=== PATIENT | female | born 1935 | race Caucasian/White ===

== ENCOUNTER 2016-08-25 05:39 | Inpatient (IN) | payer MEDICARE, BC ==
[~2016-08-25] VITALS: Ht 157.5 cm; Wt 74.9 kg
--- NOTE | ~2016-08-25 | CON ---
PATIENT'S NAME: CONY KRISHNAMURTHY I [facility] AGE: 80 Y [address] ROOM: G6330 [place], [place] [address] [facility] ADMIT DATE: 08/25/2016 Consultation DISCHARGE DATE: FAMILY PHYSICIAN: Gerardo Vernon MD ATTENDING PHYSICIAN: Adam Guillermo DATE OF CONSULTATION: 08/25/2016 REFERRING PHYSICIAN: HANS ARTEAGA MD REASON FOR CONSULTATION: Evaluation and management of a patient with lung mass. CHIEF COMPLAINT: Chest pain. HISTORY OF PRESENTING ILLNESS: This is an 80-year-old female with longstanding smoking history, coronary artery disease, peripheral vascular disease, and other comorbidities who was [facility] today for higher level of care. Apparently, the patient has had a substernal chest pain that started yesterday. Last night, she woke up with a severe chest pain and was taken to the [facility] emergency department. There was concern for jjr-[id number] myocardial infarction, and for this reason, she was transferred to our hospital where she underwent a catheterization earlier today. At the time of arrival to our hospital, she was also on supplemental oxygen at 2 liters/minute. She is usually not on supplemental oxygen during day. Nocturnal oxygen was prescribed in the past, but she did not wear it. The catheterization showed in-stent thrombus in the ramus artery. Eventually, a new drug-eluting stent was placed and the patient was started on Plavix as well. At home she has been on Pradaxa for at least 5 years although she is not sure of the reason why she was placed on Pradaxa. She was also on Plavix in the past, but that was stopped because she had a pain pump implant few years ago. While in the [facility] emergency department, chest x-ray showed possible right middle lobe mass and calcified granulomas. I was able to retrieve old chest x-rays from our system. In 2007, she had no evidence of a lung mass although she had evidence of calcified granulomas. She does not remember if she had a chest x-ray in between. Because of this finding on the chest x-ray, I was asked by Dr. Guillermo to come and evaluate the patient. At the time of my evaluation, the patient was still complaining of chest pain, although this had improved. She was on nitroglycerin drip and she had received aspirin, Plavix, and morphine as well. PAST MEDICAL HISTORY: 1. Coronary artery disease, status post multiple PCIs. She has had 7 stents PATIENT'S NAME: [facility] AGE: 80 Y [address] ROOM: [place] [address] LOCATION: [facility] ADMIT DATE: 08/25/2016 Consultation DISCHARGE DATE: FAMILY PHYSICIAN: Gerardo Vernon MD ATTENDING PHYSICIAN: Adam Guillermo placed. 2. Hypercholesterolemia. 3. Hypertension. 4. Peripheral vascular disease. 5. Osteoarthritis. 6. Gastroesophageal reflux disease. 7. Nocturnal hypoxia for COPD most likely although the patient does not remember having pulmonary function tests done in the past. PAST SURGICAL HISTORY: 1. Hysterectomy. 2. Cervical fusion. 3. Lumbar fusion. 4. Appendectomy. 5. Tonsillectomy. 6. Thyroidectomy. 7. Three C-sections. 8. Left and right ribs removal. 9. Cataract surgery. FAMILY HISTORY: Her mother passed from stomach cancer and her father passed from lung cancer. A sibling has heart problems. ALLERGIES: SHE DEVELOPS ITCHING TO CEFTRIAXONE. MEDICATIONS: Medications at home were reviewed. Notably, she was on: 1. Pradaxa. 2. Estradiol. 3. Hydrochlorothiazide. 4. Lisinopril. 5. Metformin. 6. Metoprolol. 7. Morphine pump. 8. Nitroglycerin. 9. Percocet. 10. Simvastatin. 11. Carbidopa/levodopa. CURRENT MEDICATIONS: Reviewed as per chart. As mentioned above, she was also started on: 1. Plavix. 2. Aspirin. PATIENT'S NAME: [facility] AGE: 80 Y [address] ROOM: [place] [address] LOCATION: [facility] ADMIT DATE: 08/25/2016 Consultation DISCHARGE DATE: FAMILY PHYSICIAN: Gerardo Vernon MD ATTENDING PHYSICIAN: Aadm Guillermo REVIEW OF SYSTEMS: Pertinent positives and negatives as per history of present illness. She denies chronic cough, sputum production, wheezing. She has chronic back pain and stiffness of the joints. She denies anxiety, depression, but has heartburn. Otherwise, a 12-point review of systems was performed and was negative. PHYSICAL EXAMINATION: VITAL SIGNS: Temperature is 97.4, heart rate of 69, respiratory rate was 18, blood pressure was 127/63, and oxygen saturation 95% on 2 liters. Weight 73.6 kg, height 5 feet and 3 inches with a BMI of 29.7. GENERAL: She is a pleasant, elderly female, sitting up in bed, in no acute distress, speaking in full sentences. HEENT: Atraumatic head. Changes consistent with cataract surgery noted in both eyes. Anicteric sclerae. Moist oral mucosa. No pharyngeal erythema. NECK: Supple. No JVD. No LAD. Trachea midline. She had a scar consistent with previous thyroidectomy without any palpable masses in the neck. CARDIOVASCULAR: Regular rhythm and rate. No murmur, rubs, or gallops. RESPIRATORY: Clear to auscultation bilaterally. ABDOMEN: Soft, nontender, and nondistended. Bowel sounds are present. EXTREMITIES: No lower extremity edema. No cyanosis and no clubbing. NEUROLOGIC: Alert and oriented x4. Grossly nonfocal. LABORATORY DATA: Troponin I was less than 0.04, CK-MB was 0.7, CPK was 20. Complete metabolic profile showed a sodium of 138, potassium of 5, chloride of 107, total serum bicarbonate of 19, BUN of 30, creatinine of 1.2, calcium of 9, glucose of 149. LFTs were within normal limits. CBC was within normal limits. I also personally reviewed the medical records from the outside hospital and I personally reviewed the chest x-ray that showed a large right lung mass with multiple calcified granulomas in both lungs. ASSESSMENT: 1. Right lung mass. This is as seen on the chest x-ray. There is a high concern for malignancy because of the patient's prolonged history of smoking. This mass will need a better characterization. 2. Coronary artery disease. She is status post new stent placement with initiation of Plavix and aspirin. She is currently still on nitroglycerin drip with improved chest pain. 3. Long-term anticoagulation. She is on Pradaxa, but for unclear reason. 4. Tobacco abuse. This is ongoing. 5. Acute respiratory failure. She is on supplemental oxygen at 2 liters/minute. This can be in context of acute coronary syndrome, but she might have also underlying chronic obstructive pulmonary disease. PATIENT'S NAME: CONY KRISHNAMURTHY I [facility] AGE: 80 Y [address] [place] [facility] [place] [address] LOCATION: [facility] ADMIT DATE: 08/25/2016 Consultation DISCHARGE DATE: FAMILY PHYSICIAN: Gerardo Vernon MD ATTENDING PHYSICIAN: Adam Guillermo However, overall she is not very symptomatic on a daily basis. PLAN: 1. I will order a noncontrast chest CT, and depending on the chest CT results, I will make a decision with the patient and the other physicians regarding the type and the timing of biopsy. Ideally, the patient should be off Pradaxa for at least 48 hours before a biopsy and off Plavix for 5 to 7 days. If she has the tumor in a large airway and the tumor can be visualized, she can be off Plavix for a less amount of time in case I have to proceed with bronchoscopy with endobronchial biopsies. 2. I strongly advised the patient to stop smoking. I will personally discuss with the event specialist Dr. Guillermo when to stop anticoagulation and antiplatelet therapy for possible biopsies. If the patient will need a transthoracic CT-guided needle biopsy then I will discuss also with the radiologist. The current assessment and plan was discussed with the patient and the patient's family. All of their questions were answered to the best of my abilities. I would like to thank you, Dr. Guillermo, for giving me the opportunity to participate in this patient's care. MD PAWAN GUAJARDO/sherwin /[id number] d: 08/25/[id number] t: 08/26/161611, CONSULTATION REPORT
--- NOTE | ~2016-08-25 | ECHO ---
Transthoracic Echocardiography Report (TTE) Demographics Patient Name CONY KRISHNAMURTHY I Date of Study 08/26/2016 Patient Number [id number] Visit Number [id number] Date of 1935 Room Number G6330 Gender Female Number Age 80 year(s) Referring Mima Ervin Oiling Machine Operator Freya Villagomez, Physician A RT,RVT,RDCS Physician Interpreting Mima Ervin Mill Beam Fitter Physician A MD Supervising Ordering Mima Ervin MD/MLP Physician A Nurse Stress Home Connect Lpn Conclusions Contractility Score Summary Normal Left Ventricular contractility was noted. Summary The estimated left ventricular ejection fraction is 60%. Mild concentric left ventricular hypertrophy. There is mild aortic stenosis by the Continuity Equation. The peak velocity is 1.5 m/s, the mean gradient is 4 mmHg, and the valve area based on the continuity equation is 1.6 cm2, stroke volume index is 47 ml/m2. Trivial tricuspid regurgitation by color Doppler. Procedure Type of Study TTE procedure:2D Echocardiogram, M-Mode, Doppler , Color Doppler. Procedure Date Date: 08/26/2016 Start: 01:11 PM Study Location: Inpatient Portable Technical Quality: Adequate visualization Indications:Chest pain. Appropriate Use Criteria: 9 Patient Status: Routine HR: 67 bpm BP: 126/60 mmHg Allergies - No known allergies. M-Mode/2D Measurements LV Diastolic Dimension: 2.9 cm LV Systolic Dimension: 1.74 cm LV Septum Diastolic: 1.21 cm LV PW Diastolic: 1.14 cm AO Root Dimension: 3 cm Cardiac Output: 3.16 l/min AV Cusp Separation: 1.3 cm RV Diastolic Dimension: 3.4 cm EF Estimated: 70 % LVOT: 1.7 cm MV EPSS: 0.3 cm LVOT VTI: 20.8 cm LV Stroke volume: 47.19 ml Doppler Measurements AV Peak Velocity: 1.46 m/s MV Peak E-Wave: 0.98 m/s AV Peak Gradient: 8.53 mmHg MV Peak A-Wave: 1.11 m/s AV Mean Gradient: 4 mmHg MV E/A Ratio: 0.88 LVOT Peak Velocity: 1.04 m/s MV P1/2t: 75 msec TR Gradient:3.91 mmHg PV Peak Velocity: 0.8 m/s Estimated RAP:10 mmHg PV Peak Gradient: 2.53 mmHg Estimated RVSP: 14 mmHg Estimated PASP: 13.91 mmHg E' Septal Velocity: 0.08 m/s A' Septal Velocity: 0.1 m/s MV E/E' Ratio: 12.9 Findings Left Ventricle Mild concentric left ventricular hypertrophy. Right Ventricle Normal right ventricle structure and function. Left Atrium Normal left atrial size. Right Atrium Normal right atrial size. Mitral Valve Normal mitral valve structure and function. Aortic Valve There is mild aortic stenosis by the Continuity Equation. The peak velocity is 1.5 m/s, the mean gradient is 4 mmHg, and the valve area based on the continuity equation is 1.6 cm2, stroke volume index is 47 ml/m2. Tricuspid Valve Trivial tricuspid regurgitation by color Doppler. Pericardial Effusion No evidence of pericardial effusion. Miscellaneous Visualized portions of the aortic root and ascending aorta appear normal in size. Pleural Effusion No evidence of pleural effusion. Contractility Score LV regional wall motion:(0-Non visualized 1-Normal 2-Hypokinesis 3-Akinesis 4-Dyskinesis 5-Aneurysm) Signature dtt: Adam Guillermo dtd: 08/26/16 1311 Physician Self Edit
--- NOTE | ~2016-08-25 | CATH ---
Cardiac Diagnostic + PCI Report Demographics Patient Name YESSY DONNELLY I Gender Female Date of 1935 Age 80 year(s) Patient Number [id number] Date of Study 08/25/2016 Visit Number [id number] Room Number G6330 [place] [id number] Ht 157.48 cm Wt 73.6 kg Referring Efstratiou Primary Physician Physician Aziza Swartz MD Performing Efstratiou Secondary Physician Physician Aziza Swartz MD Diagnostic Efstratiou Assisting Physician Physician Aziza Swartz MD Interventional Efstratiou Physician Bag Making Machine Tender Physician Aziza Swartz MD Findings and Conclusions Diagnostic Findings and Conclusion Severe in stent restenosis in Ramus. Moderate restenosis in RCA 30% LAD stenosis Diagnostic Recommendations PCI Ramus Interventional Findings and Conclusion Successful YADY to Ramus after extensive vessel preparation. Interventional Recommendations Aspirin, Plavix, pradaxa for 1 month. Then stop aspirin. Continue plavix and pradaxa for 11 months. Procedure Description The patient was brought to the diagnostic cardiac catheterization-EP laboratory in the fasting, non-sedated state. Informed consent was obtained in the written and verbal form after the risks and benefits were explained. The patient had no further questions and agreed to proceed. The planned puncture-incision site(s) were shaved and prepped with ChloraPrep and draped in the usual sterile manner. Conscious sedation, supplemental oxygen, and pain control medications were delivered by a registered nurse under physician guidance. Surface ECG rhythm, blood pressure measurement, and pulse oximetry were monitored throughout the procedure. Arterial access. The access site was infiltrated with lidocaine. The vessel was entered with the Seldinger technique. A sheath was advanced into the vessel and used for catheter placement. Selective left coronary angiography. A catheter was advanced into the left coronary vessel ostium under Fluoroscopic guidance. Contrast was injected by hand. Images were obtained in multiple projections. Selective right coronary angiography. A catheter was advanced into the right coronary vessel ostium under fluoroscopic guidance. Contrast was injected by hand. Images were obtained in multiple projections. Left heart catheterization. A catheter was advanced across the aortic valve to the left ventricle under fluoroscopic guidance. Resting hemodynamics were obtained. Angioplasty and Stent Placement: A guiding catheter was used to intubate the vessel. A 0.14 wire was then used to cross the lesion. A balloon catheter was placed across the lesion and inflated. The balloon catheter was then removed. A Drug Eluting Stent was placed and inflated. Post placement angiograms were performed. Arterial artery hemostasis was achieved. The patient was transferred to a regular nursing floor via cart accompanied by a nurse. The patient left the laboratory in stable condition. Diagnostic Cath Status: Urgent Interventional Cath Status: Urgent Procedure Procedure Type Diagnostic procedure:Angiography:, Coronary Angios w/[facility] PCI procedure:Drug Eluting Coronary Stent:, Ramus, PTCA:, Ramus Indications: Chest pain. The procedure was explained in detail to the patient. Risks, complications and alternative treatments were reviewed. Written consent was obtained. Medications Reviewed with Patient prior to Procedure. Angiographic Findings Dominance: Right Cardiac Arteries and Lesion Findings LMCA: Normal (0% Stenosis).Patent LAD: Diagonal small Lesion on Mid LAD: 30% stenosis . LCx: Normal (0% Stenosis).Circumflex and OM are patentThere is a previous stent on [address]st [place]. RCA: There is a previous stent on Prox RCA. Lesion on Prox RCA: 50% stenosis . The lesion was previously treated with the following techniques: drug eluting stent. This is in-stentrestenosis. Ramus: There is a previous stent on Ramus Proximal subsection. Lesion on Ramus: Proximal subsection.99% stenosis 28 mm length reduced to 0%. Pre procedure ALONSO II flow was noted. Post Procedure ALONSO III flow was present. The guidewire cross was successful.The lesion was diagnosed as a moderate risk lesion.Culprit lesion. Devices used - Whisper Wire .014 x 190. Number of passes: 1. - Emerge Balloon 1.5 x 12. 3 inflation(s) to a max pressure of: 15 jammie. - Emerge Balloon 2.0 x 12. 3 inflation(s) to a max pressure of: 16 jammie. - NC Emerge Balloon 2.0 x 15. 2 inflation(s) to a max pressure of: 24 jammie. - NC Emerge Balloon 2.25 x 12. 4 inflation(s) to a max pressure of: 24 jammie. - Promus Premier 2.25 x 28 Stent. 1 inflation(s) to a max pressure of: 14 jammie. - NC Emerge Balloon 2.5 x 15. 1 inflation(s) to a max pressure of: 20 jammie. Coronary Tree Procedure Data Procedure Date Date: 08/25/2016Start: 11:34 AMEnd: 01:02 PM Entry Locations - Retrograde Percutaneous access was performed through the Right Radial artery (Primary location). A 6 Fr sheath was inserted. Unsuccessful closure attempt was performed using: an R band. Hemostasis was successfully obtained using Mechanical Compression. Closure Comments: 13 cc of air in the R band. Procedure Medications Order and Administration + + + + + !Time !Medication !Dosage !Route ! + + + + + 08/25/2016 11:34 AM !Versed !1 mg !I.V. ! + + + + + 08/25/2016 11:39 AM !Radial Nitroglycerin !200 mcg !I.A. ! + + + + + 08/25/2016 11:40 AM !Radial Heparin (ACC_3) !3000 units !I.A. ! + + + + + 08/25/2016 11:40 AM !Radial Verapamil !3 mg !I.A. ! + + + + 08/25/2016 11:40 AM !Oxygen !2 l/min !NC ! + + + + 08/25/2016 11:40 AM !Fentanyl !50 mcg !I.V. ! + + + + 08/25/2016 12:00 PM !Heparin (ACC_3) !3000 units !I.V. ! + + + + 08/25/2016 12:12 PM !Fentanyl !25 mcg !I.V. ! + + + + + !08/25/2016 12:25 PM !Fentanyl !50 mcg !I.V. ! + + + + + 08/25/2016 12:30 PM !Nitroglycerin !300 mcg !I.C. ! + + + + + !08/25/2016 12:34 PM !Nitroglycerin !200 mcg !I.C. ! + + + + 08/25/2016 12:36 PM !Nitroglycerin !10 mcg/min !I.V. drip ! + + + + + 08/25/2016 12:41 PM !Nitroglycerin !20 mcg/min !I.V. drip ! + + + + + !08/25/2016 12:41 PM !Nitroglycerin !30 mcg/min !I.V. drip ! + + + + + 08/25/2016 12:43 PM !Nitroglycerin !50 mcg/min !I.V. drip ! + + + + + 08/25/2016 12:46 PM !Fentanyl !50 mcg !I.V. ! + + + + 08/25/2016 12:48 PM !Plavix (ACC_8) !600 mg !P.O. ! + + + + + 08/25/2016 12:53 PM !Heparin (ACC_3) ! !I.V. ! + + + + + Devices Used - A6 Fr. BS JR 4 Diag. Catheterwas used for:Right coronary angiography. - A6 Fr. BS JL 3.5 Diag. Catheterwas used for:Left coronary angiography. - A6 Fr. XBLAD 3.5 Guide Catheterwas used for:Ramus Intervention. - A6 Fr. Guidlinerwas used for:Ramus Intervention. Contrast Material - Isovue [id number] ml Fluoroscopy Time: Diagnostic: 20:06 minutes. Total: 20:06 minutes. Fluoroscopy Dose: Diagnostic: 1531 mGy. Total: 1531 mGy. Estimated Blood Loss: 40 ml. Additional [facility] PCI Information PCI Indication:PCI for high risk Non-STEMI or unstable angina. Medical History Allergies - No known allergies. Risk Factors The patient risk factors include:prior PCI;peripheral arterial disease, hypercholesterolemia, hypertension, family history of premature CAD, chronic lung disease, dyslipidemia, Current/Recent(w/in 1 year) tobacco use and prior ID . Admission Data Admission Date: 08/25/2016 Admission Time: 05:39 AM Insurance Payors: Medicare. Admission Medications + +------+------+ + + + + !Medication !Dosage!Times !Last !Last !Administered !Comments ! ! ! !Per !Delivery !Delivery ! ! ! ! ! !Day !Date !Time ! ! ! + +------+------+ + + + + !Statin (any)! ! ! ! !Yes ! ! + +------+------+ + + + + !VIPIN ! ! ! ! !Yes ! ! !Inhibitor ! ! ! ! ! ! ! !(any) ! ! ! ! ! ! ! + +------+------+ + + + + !Beta Chad! ! ! ! !Yes ! ! !(any) ! ! ! ! ! ! ! + +------+------+ + + + + Clinical Evaluation Leading to Procedure - The patient's CAD presentation was assessed as: Unstable angina. - The patient's anginal syndrome during the past two weeks was assessed as: Class IV according to the [place] Cardiovascular Society Classification System (CCS). Snapshots Hemodynamics Condition: Rest O2 Consumption: Estimated: 156.62Heart Rate: 69 bpm Pressures (mmHg) +-----+ + !Site !Pressure ! +-----+ + !LV !127/-14 ,2 ! +-----+ + !LV !132/-13 ,7 ! +-----+ + !AO !131/45 (81) ! +-----+ + !LV !129/-11 ,9 ! +-----+ + !AO !127/59 (86) ! +-----+ + !AO !129/59 (85) ! +-----+ + Valve Gradients and Areas + +---------+---------+---------+ +---------+ + !Valve !Peak !Mean !Area !Index !Flow !Source ! + +---------+---------+---------+ +---------+ + !Aortic !0 !0 ! ! ! ! ! + +---------+---------+---------+ +---------+ + !Aortic !0 !0 ! ! ! ! ! + +---------+---------+---------+ +---------+ + Shunts Oxygen Values O2 Capacity 174.08 O2 Consumption 156.62 Signatures dtt: Adam Guillermo dtd: 08/25/16 1134 Physician Self Edit
--- NOTE | ~2016-08-25 | HP ---
PATIENT'S NAME: CONY KRISHNAMURTHY I [facility] AGE: 80 Y [address] ROOM: [id number] [place], [place] [address] LOCATION: GPCU ADMIT DATE: 08/25/2016 History & Physical DISCHARGE DATE: FAMILY PHYSICIAN: Gerardo Vernon MD ATTENDING PHYSICIAN: Kyara Minaya DATE OF SERVICE: HISTORY OF PRESENT ILLNESS: This is an 80-year-old female who normally follows cardiology care with Dr. Ab Cadet. She presented to [facility] with complaints of substernal chest pain that began overnight at about 10 p.m. She states the pain is very similar to her previous chest pains prior to previous stents. She states she has not been having increased episodes of angina lately, but that her pain is currently 2/10, but on initiation, was an 8/10. Her EKG and enzymes are stable and show no acute signs of coronary ischemia. The patient remembers having at least 7 coronary stents, with the last one being several years ago. She also has recently had a right carotid endarterectomy about 2 years ago at [facility] and had an incidental finding of a lung mass on chest x-ray. PAST MEDICAL HISTORY: Includes diabetes mellitus, type 2; hypertension; hypothyroidism; COPD; spinal stenosis; and dyslipidemia. Last catheterization from 2007 shows a stent placement to her ramus with previous stenting noted to her RCA. SOCIAL HISTORY: Includes daily cigarette use, and she is a 1-pack per day smoker. No noted history of alcohol or illicit drug use. FAMILY HISTORY: Positive for heart disease in a sibling, but her mother and father ultimately due to cancer, specifically stomach and lung. Past medical, social, and family history as listed in the HPI. HOME MEDICATIONS: 1. Calcium plus vitamin D one tablet p.o. daily in the evening. 2. Sinemet 25/100 mg p.o. twice daily. 3. Pradaxa 75 mg p.o. twice daily. 4. Estradiol 0.5 mg p.o. daily. 5. Hydrochlorothiazide 25 mg p.o. daily. 6. Lisinopril 10 mg p.o. twice daily. 7. Glucophage 500 mg p.o. twice daily. 8. Lopressor 50 mg p.o. twice daily. PATIENT'S NAME: CONY KRISHNAMURTHY I [facility] AGE: 80 Y [address] ROOM: [id number] [place] [address] LOCATION: GPCU ADMIT DATE: 08/25/2016 History & Physical DISCHARGE DATE: FAMILY PHYSICIAN: Gerardo Vernon MD ATTENDING PHYSICIAN: Kyara Minaya 9. Morphine pump, managed by Dr. Vázquez. 10. Multivitamin one tablet p.o. daily. 11. Nitroglycerin 0.4 mg sublingual as needed for chest pain. 12. Percocet 5/325 mg p.o. 1 to 2 tablets every 6 hours as needed for pain. 13. Simvastatin 40 mg p.o. daily in the evening. MEDICATION ALLERGIES: Rocephin causing itching. REVIEW OF SYSTEMS: Pertinent positive review of systems as listed in the HPI. All other review of systems evaluated and negative. PHYSICAL EXAMINATION: VITAL SIGNS: Temperature 98.1, pulse 69, respirations 18, blood pressure 130/63, and O2 saturation 95% on 2 L nasal cannula. The patient weighs 73.6 kg. SKIN: [place], warm, and dry. EYES: Sclerae are clear. No xanthelasma. ENT: Oral mucosa is pink and moist. NECK: No jugular venous distention noted. Does have mild carotid bruits. CHEST: Respirations are even and unlabored. LUNGS. Lung sounds do show some bibasilar crackles. HEART: Regular rate and rhythm. Normal S1 and S2. Does have the presence of an S4. ABDOMEN: Soft and nontender, but obese. MUSCULOSKELETAL: Equal muscle strength to upper and lower extremities bilaterally against resistance. EXTREMITIES: Peripheral pulses palpable. No clubbing or cyanosis noted, and no noted edema. PSYCHIATRIC: Alert and oriented. Mood and affect are appropriate. IMPRESSION AND PLAN: Per Dr. Minaya. 1. Chest pain suggestive of angina. 2. Coronary artery disease, with previous stenting. 3. Carotid artery disease, with history of CEA. 4. Hypertension. 5. Diabetes mellitus, type 2. Given the patient's previous history and concerning symptoms, we will plan to proceed with selective coronary angiography and possible percutaneous intervention. We will also get a pulmonary consult due to her noted lung mass. We will continue to monitor, evaluate, and treat as appropriate. Thank you for allowing [facility] to interact in the care of PATIENT'S NAME: CONY KRISHNAMURTHY I [facility] AGE: 80 Y [address] ROOM: [id number] [place], [place] [address] LOCATION: [facility] ADMIT DATE: 08/25/2016 History & Physical DISCHARGE DATE: FAMILY PHYSICIAN: Gerardo Vernon MD ATTENDING PHYSICIAN: Kyara Minaya this patient. Dr. Ab Cadet will be resuming care of this patient Friday morning. ALEX STRINGER APRN FOR KYARA MINAYA MD DEH/modl /[id number] D: [id number] T: 011 HISTORY & PHYSICAL
[2016-08-25 06:53] LABS: BASOPHIL % 0.4 %; EOSINOPHIL # 0.1 K/uL (0.0-0.5); EOSINOPHIL % 0.6 %; HEMATOCRIT 38.8 % (30.0-46.0); HEMOGLOBIN 12.8 g/dL (10.0-15.0); IMMATURE GRANULOCYTE # 0.1 K/uL (0.0-0.3); IMMATURE GRANULOCYTE % 0.5 %; LYMPHOCYTE # 2.2 K/uL (0.8-4.0); LYMPHOCYTE % 21.3 %; MCH 28.2 pg (27.0-34.0); MCV 85.5 fl (83.0-98.0); MONOCYTE # 0.6 K/uL (0.0-1.0); MONOCYTE % 5.9 %; MPV 8.9 fl (9.4-12.4); NEUTROPHIL # (ANC) 7.4 K/uL (1.8-7.8); NEUTROPHIL % 71.3 %; NRBC % 0 /100WBC (0-0.00); PLATELET COUNT 297 K/uL (150-450); RBC 4.54 M/uL (3.00-5.00); RDW-CV 14.3 % (11.9-14.6); WBC 10.4 K/uL (4.0-11.0)
[2016-08-25 07:01] LABS: INR - (THERAPEUTIC) 1.15 (0.92-1.07); PROTIME 12.1 SECONDS (9.8-11.4)
[2016-08-25 07:10] LABS: CPK 20 IU/L (21-215)
[2016-08-25 09:31] LABS: ALBUMIN 3.1 gm/dL (3.5-5.0); CREATININE 1.2 mg/dL (0.5-1.1); TOTAL BILIRUBIN 0.4 mg/dL (0.0-1.5); TOTAL PROTEIN 6.7 g/dL (6.0-8.4)
[2016-08-25] MEDS ORDERED: SIMVASTATIN40 MG PO (10:43)
[2016-08-25] MEDS ORDERED: ESTRADIOL0.5 MG PO (10:43)
[2016-08-25] MEDS ORDERED: PRINIVIL OR ZES10 MG PO (10:43)
[2016-08-25] MEDS ORDERED: PRADAXA75 MG PO (10:44)
[2016-08-25] MEDS ORDERED: LOPRESSOR50 MG PO (10:44)
[2016-08-25] MEDS ORDERED: GLUCOPHAGE500 MG PO (10:44)
[2016-08-25] MEDS ORDERED: HYDRODIURIL25 MG PO (10:45)
[2016-08-25] MEDS ORDERED: NITROSTAT0.4 MG PO (10:45)
[2016-08-25] MEDS ORDERED: OSCAL + D500 MG PO (10:46)
[2016-08-25] MEDS ORDERED: MULTIPLE VITAM1 EACH PO (10:46)
[2016-08-25] MEDS ORDERED: PERCOCET 5-3251 EACH PO (10:46)
[2016-08-25] MEDS ORDERED: SINEMET 25-1001 EACH PO (10:46)
[2016-08-25] MEDS ORDERED: MORPHINE PUMP IV (10:48)
--- NOTE | 2016-08-25 14:52 | NUR ---
08-25-16 0600 Patient brought to floor per ems by cart. Upon arrival to floor patient is aler and orietned x3. She complains of pressure in her chest. Patient originally came to ER last night for chest pain that was 8/10. Sl nitro given and o2 started, pressure is now down to a 2. O2 continues at 2L per acs protocol, with sats in the mid 90s. Family present. Dr Ruiz to see and write orders. NPO at this time for possible heart cath.
[2016-08-25 14:59] LABS: CPK 22 IU/L (21-215)
--- NOTE | 2016-08-25 15:04 | NUR ---
Significant Event: VSS, PT AFEBRILE. CONTINUES ON 2L O2 PER ACS PROTOCOL WITH SATS IN THE MID 90'S. PT CONTINUES TO CO HEAVINESS IN HER CHEST AT A 2. RECEIVED ORDERS FOR HEART CATH. PT DOWN TO JAVA SECURITY ENGINEER AT 1110. A STENT PLACED IN A STENT IN THE RAMUS. UPON ARRIVAL BACK TO FLOOR PT IS RATING HER CHEST PAIN AT A 6. NITRO RUNNING AND TO TITRATE TO KEEP SBP <140. 2MG MORPHINE GIVEN X1 FOR CHEST PAIN. PT ALERT AND ORIENTED X3, SLIGHTLY DROWSY AFTER JAVA SECURITY ENGINEER. USES CALL LIGHT APPROPRIATELY. Follow up:
--- NOTE | 2016-08-26 04:13 | NUR ---
Significant Event: Patient A/Ox3. VSS on 2L, titrated to 1L. Patient tolerates room air when awake, but does require 1L when sleeping. R) radial site soft, CSM WNL. IV to L) AC removed due to significant leaking. R) AC IV SL. Up 1-assist to bathroom, patient fatigues quickly with ambulation. No complaints of chest pain. Patient is to have a biopsy done in the future as outpatient, at least 1 month out, per Dr. Ruiz. Follow up: Home today or next few days?
[2016-08-26 08:15] LABS: ALBUMIN 2.9 gm/dL (3.5-5.0); ANION GAP 13.6 (10.0-19.0); CALCIUM 8.8 mg/dL (8.5-10.5); CREATININE 1.1 mg/dL (0.5-1.1); POTASSIUM 4.6 mMol/L (3.7-5.1); TOTAL BILIRUBIN 0.4 mg/dL (0.0-1.5); TOTAL PROTEIN 6.5 g/dL (6.0-8.4)
--- NOTE | 2016-08-26 15:50 | NUR ---
Significant Event: A/O X3. UP WITH 1 ASSIST, GB AND WALKER. UNSTEADY AT TIMES. VSS. C/O MINIMAL PAIN TO CHEST, REFUSED PAIN MEDICATION. PLAYED CARDS WITH FAMILY IN FAMILY DINING ROOM FOR MUCH OF THE MORNING. ECHO DONE THIS AFTERNOON. HAS BEEN RESTING IN BED THIS AFTERNOON, STATES SHE IS "WORN OUT.". PIV SL'D TO RIGHT AC. RIGHT RADIAL SITE WITH BANDAID IN PLACE. Follow up: POSSIBLE DISCHARGE LATER TODAY OR TOMORROW.
[2016-08-26] MEDS ORDERED: ASPIRIN (CHILDR81 MG PO (17:31)
[2016-08-26] MEDS ORDERED: PLAVIX75 MG PO (17:37)
--- NOTE | 2016-08-26 18:23 | NUR ---
DISCHARGE: VSS. DENIES PAIN. UP WITH MINIMAL ASSIST. RIGHT AC IV DC'D. DISCHARGE INSTRUCTIONS REVIEWED. NEED TO SET UP FOLLOW UP APPOINTMENTS DISCUSSED. INFORMATION GIVEN TO PREP FOR PET/CT SCAN. RADIAL SITE CARE GIVEN. NEW MEDICATION INFO GIVEN. NO FURTHER QUESTIONS. TAKEN TO [facility] BY WHEELCHAIR BY NUTRITIONIST @ 1800 FOR DISCHARGE. FAMILY PRESENT AT TIME OF INSTRUCTIONS AND DISCHARGE.
== END 2016-08-26 18:00 | disposition disaster alternative care site (69) | DRG 246 ==
LOC: GPCU 05:39
PROVIDERS: ADMIT Internal Medicine Cardiovascular Disease
DX: T82.855A Stenosis of coronary artery stent, initial encounter (principal); J96.00 Acute respiratory failure, unspecified whether with hypoxia or hypercapnia; R07.9 Chest pain, unspecified; I25.10 Atherosclerotic heart disease of native coronary artery without angina pectoris; E78.00 Pure hypercholesterolemia, unspecified; I10 Essential (primary) hypertension; I73.9 Peripheral vascular disease, unspecified; R91.8 Other nonspecific abnormal finding of lung field; M19.90 Unspecified osteoarthritis, unspecified site; F17.210 Nicotine dependence, cigarettes, uncomplicated; K21.9 Gastro-esophageal reflux disease without esophagitis; R09.02 Hypoxemia; Z98.1 Arthrodesis status; Z95.5 Presence of coronary angioplasty implant and graft; Z79.01 Long term (current) use of anticoagulants
CPT/HCPCS: A9270; C1725; C1769; C1874; C1887; C1894; C9600; J1644; J2250; J2270; J3010; J7030

== ENCOUNTER → 2016-09-24 | Outpatient (CLI) | payer MEDICARE, BC ==
[~2016-09-24] MED LIST: ASPIRIN (CHILDR81 MG PO; ESTRADIOL0.5 MG PO; GLUCOPHAGE500 MG PO; HYDRODIURIL25 MG PO; LOPRESSOR50 MG PO; MORPHINE PUMP IV; MULTIPLE VITAM1 EACH PO; NITROSTAT0.4 MG PO; OSCAL + D500 MG PO; PERCOCET 5-3251 EACH PO; PLAVIX75 MG PO; PRADAXA75 MG PO; PRINIVIL OR ZES10 MG PO; SIMVASTATIN40 MG PO; SINEMET 25-1001 EACH PO
--- NOTE | ~2016-09-24 | PUL ---
PATIENT'S NAME: CONY KRISHNAMURTHY I [facility] AGE: 80 Y [address] ROOM: [place] [address] LOCATION: [facility] ADMIT DATE: 09/24/2016 Pulmonary DISCHARGE DATE: FAMILY PHYSICIAN: Gerardo Vernon ATTENDING PHYSICIAN: HANS ARTEAGA NAME OF PROCEDURE: Pulmonary Function Test DATE OF PROCEDURE: September 24, 2016 TECH: ATripe, NAIL TECHNICIAN TEACHER REASON FOR EXAM: Dyspnea on exertion RESULTS: 1. FVC was 2.65 liters which is 113% of predicted and normal, FEV1 was 1.96 liters which is 113% of predicted and normal and FEV1/FVC was 74% and normal. The flow volume curve did not reveal any significant airflow limitation. After bronchodilator administration FVC increased to 2.82 liters which is a 6% increase and FEV1 increased to 2.05 liters which is a 5% increase. FEV1/FVC was 73%. 2. DLCO was 8 with an adjusted DLCO of 8.3 which is 45% of predicted and low. 3. Total lung capacity was 5.38 liters which is 124% of predicted and high, and residual volume was 2.72 liters which is 146% of predicted and high. PHYSICIAN INTERPRETATION: The patient has no airflow limitation and no significant bronchodilator response. Her diffusion capacity is moderately low. There is evidence of significant hyperinflation and air trapping on the lung volumes. MD PAWAN GUAJARDO/jacqueline /[id number] dtt: 10/01/16 1944 CHANDLER RADU F dtd: 09/27/16 1121
== END | disposition disaster alternative care site (69) ==
LOC: GRTH 10:53
DX: R06.02 Shortness of breath (principal); R91.8 Other nonspecific abnormal finding of lung field; Z87.891 Personal history of nicotine dependence

== ENCOUNTER → 2016-09-25 | Outpatient (CLI) | payer MEDICARE, BC | END | disposition disaster alternative care site (69) | LOC: GKIC 11:35 | DX: R91.8 Other nonspecific abnormal finding of lung field (principal); C96.9 Malignant neoplasm of lymphoid, hematopoietic and related tissue, unspecified; R22.0 Localized swelling, mass and lump, head | CPT/HCPCS: A9552 ==